=== PATIENT | female | born 1955 | race African-American/Black ===

== ENCOUNTER 2024-08-19 07:30 | Inpatient (IN) | payer OTHER ==
[2024-08-19] MEDS ORDERED: NOREPINEPHRINE 8 MG/250 ML-D5W 250 ML ONE (07:37)
[2024-08-19] MEDS ORDERED: Magnesium 2 GM/50 ML BAG (IN WATER) ONE (07:55)
[2024-08-19 08:14] LABS: Actual Bicarbonate (HCO3a) 21.5 mEq/L (22-28); Analyzer IN Cardio ER; Calcium, Ionized (arterial) 1.21 mmol/L (1.12-1.30); Carboxyhemoglobin (COHb) 0.8 gm% (0.0-3.0); Hematocrit-ABG 30 % (36.0-47.0); Hemoglobin (Hb) 10.1 g/dL (12.0-16.0); O2 Tension (PaO2), arterial 547.3 mmHg (> 70.0); Potassium - ABG Lab 4.45 mmol/L (3.70-5.30); pH, Arterial 7.393 (7.35-7.45)
[2024-08-19] MEDS ORDERED: Vancomycin (BATCH) 2 GM/500 ML BAG ONE (08:16)
[2024-08-19] MEDS ORDERED: Cefepime 2 GM VIAL ONE (08:17)
[2024-08-19] MEDS ORDERED: Sodium Chloride 0.9% 100 ML ONE (08:17)
[2024-08-19 08:20] LABS: Hemoglobin 9.5 g/dL (12.0-16.0); Mean Corpuscular HGB CONC 28.8 g/dL (32.0-36.0); Mean Corpuscular Volume 104.1 fL (78.0-98.0); Mean Platelet Volume 11.7 fL (7.4-10.4); Platelet Count 106 10x3/uL (130-400); RBC Distribution Width 13.2 % (11.5-14.5); Red Blood Cell (RBC) Count 3.17 mill/uL (4.20-5.40)
[2024-08-19] MEDS ORDERED: fentaNYL 50 mcg/mL 1 mL Vial ONE ×3 (08:24→08:41)
[2024-08-19 08:26] LABS: ALT (SGPT) 160 U/L (Less than 34); AST (SGOT) 232 U/L (11-34); Albumin 2.4 g/dL (3.1-4.5); Alkaline Phosphatase 118 U/L (40-110); Anion Gap 24 mmol/L (10-20); BUN (Urea Nitrogen) 19 mg/dL (9.8-20.1); Bilirubin, Total 0.4 mg/dL (0.3-1.2); CK (CPK) 79 U/L (29-168); Calc. Creatinine Clearance 0 mL/min (70-130); Calcium 10.1 mg/dL (7.8-10.44); Carbon Dioxide 21 mmol/L (23-31); Chloride 97 mmol/L (98-107); Estimated GFR 45; Glucose 288 mg/dL (80-115); Lipase 22 U/L (8-78); Magnesium 1.9 mg/dL (1.6-2.6); Potassium 5.8 mmol/L (3.5-5.1); Protein, Total 5.4 g/dL (5.8-8.1); Sodium 136 mmol/L (136-145)
[2024-08-19 08:28] LABS: Troponin I 0.031 ng/mL (< 0.028)
[2024-08-19 08:33] LABS: Puncture Site Left Radial artery
[2024-08-19 08:40] LABS: INR-International Normal Ratio 1.2; PTT 32.9 sec (22.9-36.1); Prothrombin Time 14.9 sec (12.0-14.7)
[2024-08-19] MEDS ORDERED: Midazolam HCl 2 mg/2 ml Vial ONE (08:43)
[2024-08-19] MEDS ORDERED: LORazepam 2 MG/ML SYR.(CARPUJECT) ONE (08:45)
[2024-08-19] MEDS ORDERED: KETAMINE 100 MG/ML (5ML VIAL) ONE ×2 (08:45→09:22)
[2024-08-19] MEDS ORDERED: Fentanyl CADD 100 ML IV SCH (08:45)
[2024-08-19] MEDS ORDERED: EPINEPHrine 1 MG/10 ML Abboject SYRINGE ONE (09:02)
[2024-08-19 09:25] LABS: Anisocytosis MARKED = >30 cells HPF (0-5); Band 2 % (5-11); Lymphocytes 32 % (21-51); Macrocytosis MODERATE=16-30 cells HPF (0-5); Metamyelocyte 1 % (0-0); Monocytes 2 % (0-10); Neutrophil 63 % (42-75); Ovalocytes SLIGHT = 2-5 cells HPF (0-1); Platelet Adequacy Comment Platelets Decreased
[2024-08-19] MEDS ORDERED: Iopamidol-370 76% 500 ML MDV (1 ML CHARGE) ONE (11:07)
[2024-08-19 11:11] LABS: Lactic Acid 11.62 mmol/L (0.50-2.20)
[2024-08-19 11:45] LABS: Bacteria/HPF 4+ HPF (None Seen); Bilirubin Negative (Negative); Blood, Urine Trace (Negative); CAUTI Indications for Culture Alt mental st,lethar; Clarity Turbid (Clear); Glucose, Urine (Dipstick) Normal (Negative); Ketone, Urine Negative (Negative); Leukocyte 500 Leu/uL (Negative); Nitrite Negative (Negative); Protein, Urine (Dipstick) 70 mg/dL (Neg-Trace); Specific Gravity, Urine 1.011 (1.002-1.036); Squamous Epithelial 0-3 HPF (0-3); Urobilinogen Normal mg/dL (Less than 2); WBC/HPF Greater than 50 HPF (0-3)
[2024-08-19] MEDS ORDERED: Ondansetron PF 4 MG/2 ML Vial IVP PRN (11:50)
[2024-08-19 11:53] LABS: Urine Culture Reflex Yes Yes
[2024-08-19] MEDS ORDERED: Dextrose 5% in Water 1,000 ML IV PRN (13:04)
[2024-08-19] MEDS ORDERED: Insulin Lispro 100 UNIT/ML 10 ML VIAL SC PRN (13:04)
[2024-08-19] MEDS ORDERED: Dextrose 50% Abboject 50 ML SYRINGE SLOW IVP PRN (13:04)
[2024-08-19] MEDS ORDERED: Glucagon 1 MG/ML KIT IM PRN (13:04)
[2024-08-19 13:11] VITALS: BMI 44.8
[2024-08-19] MEDS ORDERED: Electrolyte Replacement Protocol 1 EACH FS SCH (13:12)
[2024-08-19] MEDS: NOREPINEPHRINE 8 MG/250 ML-D5W 250 ML IVPB SCH (13:26)
[2024-08-19] MEDS ORDERED: DOPamine 400 MG/D5W 250 ML 250 ML IVPB SCH (14:30)
[2024-08-19] MEDS: Magnesium 2 GM/50 ML(in water) 2 GM in Premix 1 BAG IVPB SCH ×2 (14:31→17:02)
[2024-08-19] MEDS: Lactated Ringer's 1,000 ML IV SCH (14:42)
[2024-08-19 14:46] LABS: #Basophils Less than 0.03 10x3/uL (0.0-0.2); #Eosinophils Less than 0.03 10x3/uL (0.0-0.7); %Basophils 0.2 % (0.0-1.0); %Lymphocytes 7.6 % (21.0-51.0); %Monocytes 5.9 % (0.0-10.0); %Neutrophils 85.9 % (42.0-75.0); Hematocrit 33.2 % (36.0-47.0); Hemoglobin 10.5 g/dL (12.0-16.0); Mean Corpuscular HGB CONC 31.6 g/dL (32.0-36.0); Mean Corpuscular Hemoglobin 29.4 pg (27.0-31.0); Mean Platelet Volume 10.9 fL (7.4-10.4); Platelet Count 222 10x3/uL (130-400); RBC Distribution Width 12.6 % (11.5-14.5); Red Blood Cell (RBC) Count 3.57 mill/uL (4.20-5.40)
[2024-08-19 14:56] LABS: Lactic Acid 2.41 mmol/L (0.50-2.20)
[2024-08-19 15:03] LABS: ALT (SGPT) 265 U/L (Less than 34); AST (SGOT) 367 U/L (11-34); Alkaline Phosphatase 183 U/L (40-110); Anion Gap 18 mmol/L (10-20); BUN (Urea Nitrogen) 24 mg/dL (9.8-20.1); Bilirubin, Total 1.4 mg/dL (0.3-1.2); Calc. Creatinine Clearance 100 mL/min (70-130); Calcium 9.5 mg/dL (7.8-10.44); Carbon Dioxide 26 mmol/L (23-31); Chloride 97 mmol/L (98-107); Estimated GFR 58; Globulin 3.7 g/dL (2.4-3.5); Glucose 233 mg/dL (80-115); Potassium 3.6 mmol/L (3.5-5.1); Protein, Total 6.7 g/dL (5.8-8.1); Sodium 137 mmol/L (136-145)
[2024-08-19 15:11] LABS: Troponin I 0.033 ng/mL (< 0.028)
[2024-08-19] MEDS ORDERED: Vasopressin 20 UNITS in Sodium Chloride 0.9% 50 ML IV SCH (15:30)
[2024-08-19] MEDS: Lorazepam 2 MG/ML VIAL SLOW IVP SCH (15:53)
[2024-08-19] MEDS: Sodium Polystyrene Sulfonate 15 GM (60 mL) BOT PO SCH (16:31)
[2024-08-19] MEDS: Lorazepam 2 MG/ML VIAL ONE (16:31)
[2024-08-19] MEDS: NOREPINEPHRINE 8 MG/250 ML-D5W 250 ML ONE (16:32)
[2024-08-19] MEDS: levETIRAcetam 500 MG (5 mL) VIAL SLOW IVP SCH ×2 (18:04→20:11)
[2024-08-19] MEDS: Lacosamide 200 MG in Sodium Chloride 0.9% 50 ML IVPB SCH (18:04)
[2024-08-19] MEDS: Famotidine/PF 20 mg/2ml Vial SLOW IVP SCH (20:11)
[2024-08-19] MEDS: Cefepime 2 GM in Sodium Chloride 0.9% 100 ML IVPB SCH (22:21)
[2024-08-19] MEDS: Vancomycin HCl 750 MG in Sodium Chloride 0.9% 250 ML 250 ML IVPB SCH (22:22)
[2024-08-19] MEDS: Vasopressin In 0.9 % NaCl 40 UNIT in Premix 1 BAG IV SCH (22:25)
[2024-08-19] MEDS: Lacosamide 100 MG in Sodium Chloride 0.9% 50 ML IVPB SCH (22:40)
[2024-08-20 05:48] LABS: #Basophils 0.04 10x3/uL (0.0-0.2); #Eosinophils Less than 0.03 10x3/uL (0.0-0.7); %Basophils 0.4 % (0.0-1.0); %Eosinophils 0.1 % (0.0-10.0); %Monocytes 3.9 % (0.0-10.0); %Neutrophils 87.2 % (42.0-75.0); Hematocrit 27.2 % (36.0-47.0); Mean Corpuscular HGB CONC 33.1 g/dL (32.0-36.0); Mean Corpuscular Hemoglobin 29.7 pg (27.0-31.0); Mean Corpuscular Volume 89.8 fL (78.0-98.0); Mean Platelet Volume 11.3 fL (7.4-10.4); Platelet Count 179 10x3/uL (130-400); RBC Distribution Width 13.1 % (11.5-14.5); Red Blood Cell (RBC) Count 3.03 mill/uL (4.20-5.40)
[2024-08-20] MEDS ORDERED: Electrolyte Replacement Protocol FS PRN (06:15)
[2024-08-20 06:26] LABS: Vancomycin, Random 12.7 ug/mL (See Comment)
[2024-08-20 06:29] LABS: ALT (SGPT) 168 U/L (Less than 34); AST (SGOT) 131 U/L (11-34); Albumin 2.6 g/dL (3.1-4.5); Alkaline Phosphatase 141 U/L (40-110); Anion Gap 16 mmol/L (10-20); BUN (Urea Nitrogen) 26 mg/dL (9.8-20.1); Bilirubin, Total 0.7 mg/dL (0.3-1.2); Calc. Creatinine Clearance 0 mL/min (70-130); Carbon Dioxide 25 mmol/L (23-31); Chloride 99 mmol/L (98-107); Estimated GFR 49; Globulin 3.1 g/dL (2.4-3.5); Glucose 135 mg/dL (80-115); Potassium 3.9 mmol/L (3.5-5.1); Protein, Total 5.7 g/dL (5.8-8.1); Sodium 136 mmol/L (136-145)
[2024-08-20] MEDS: Cefepime 2 GM in Sodium Chloride 0.9% 100 ML IVPB SCH ×2 (09:00→21:13)
[2024-08-20] MEDS: Enoxaparin 40 MG (0.4 mL) SYRINGE SC SCH ×2 (09:30→12:25)
[2024-08-20] MEDS ORDERED: Fentanyl BOLUS 250 ML IVPB PRN (11:15)
[2024-08-20] MEDS: Fentanyl CADD 100 ML IV SCH (11:27)
[2024-08-20] MEDS: Vancomycin HCl 750 MG in Sodium Chloride 0.9% 250 ML 250 ML IVPB SCH (12:45)
[2024-08-21 05:06] LABS: #Basophils 0.03 10x3/uL (0.0-0.2); %Basophils 0.3 % (0.0-1.0); %Eosinophils 1.5 % (0.0-10.0); %Lymphocytes 7.2 % (21.0-51.0); %Monocytes 3.3 % (0.0-10.0); %Neutrophils 87.1 % (42.0-75.0); Hematocrit 26.4 % (36.0-47.0); Hemoglobin 8.8 g/dL (12.0-16.0); Mean Corpuscular HGB CONC 33.3 g/dL (32.0-36.0); Mean Corpuscular Volume 90.1 fL (78.0-98.0); Mean Platelet Volume 12.1 fL (7.4-10.4); Platelet Count 171 10x3/uL (130-400); RBC Distribution Width 13.7 % (11.5-14.5); Red Blood Cell (RBC) Count 2.93 mill/uL (4.20-5.40)
[2024-08-21 05:24] LABS: ALT (SGPT) 106 U/L (Less than 34); AST (SGOT) 80 U/L (11-34); Albumin 2.4 g/dL (3.1-4.5); Alkaline Phosphatase 127 U/L (40-110); Anion Gap 14 mmol/L (10-20); BUN (Urea Nitrogen) 27 mg/dL (9.8-20.1); Calc. Creatinine Clearance 0 mL/min (70-130); Calcium 8.5 mg/dL (7.8-10.44); Carbon Dioxide 28 mmol/L (23-31); Chloride 101 mmol/L (98-107); Estimated GFR 50; Globulin 3.2 g/dL (2.4-3.5); Glucose 100 mg/dL (80-115); Potassium 3.6 mmol/L (3.5-5.1); Protein, Total 5.6 g/dL (5.8-8.1); Sodium 139 mmol/L (136-145)
[2024-08-21] MEDS: FLU (Fluad Triv) TS24-25 (65UP)/MF59C/PF 45 MCG/0.5 ML Syringe IM ONE (07:56)
[2024-08-21] MEDS ORDERED: Vancomycin 1.5 GRAM/300 ML BAG 1.5 GM in Premix 1 BAG IVPB SCH (13:00)
[2024-08-21 15:19] VITALS: BMI 43.0
[2024-08-22 03:41] LABS: #Basophils Less than 0.03 10x3/uL (0.0-0.2); %Basophils 0.1 % (0.0-1.0); %Eosinophils 2.1 % (0.0-10.0); %Lymphocytes 10.9 % (21.0-51.0); %Monocytes 4.4 % (0.0-10.0); %Neutrophils 82.1 % (42.0-75.0); Hematocrit 25.3 % (36.0-47.0); Hemoglobin 7.9 g/dL (12.0-16.0); Mean Corpuscular HGB CONC 31.2 g/dL (32.0-36.0); Mean Corpuscular Hemoglobin 29.3 pg (27.0-31.0); Mean Corpuscular Volume 93.7 fL (78.0-98.0); Mean Platelet Volume 12.5 fL (7.4-10.4); Platelet Count 155 10x3/uL (130-400); RBC Distribution Width 13.8 % (11.5-14.5)
[2024-08-22 03:58] LABS: Anion Gap 12 mmol/L (10-20); BUN (Urea Nitrogen) 23 mg/dL (9.8-20.1); Calc. Creatinine Clearance 93 mL/min (70-130); Calcium 8.4 mg/dL (7.8-10.44); Carbon Dioxide 28 mmol/L (23-31); Chloride 102 mmol/L (98-107); Estimated GFR 55; Glucose 88 mg/dL (80-115); Potassium 3.4 mmol/L (3.5-5.1); Sodium 139 mmol/L (136-145)
[2024-08-22] MEDS: Potassium Chloride 40 MEQ in Premix 1 BAG IVPB SCH (05:53)
[2024-08-22] MEDS: CEFAZOLIN 1 GM in Sodium Chloride 0.9% 100 ML IVPB SCH (09:30)
[2024-08-22] MEDS: Lorazepam 2 MG/ML VIAL ONE (10:13)
[2024-08-22 17:51] LABS: Potassium 3.6 mmol/L (3.5-5.1)
[2024-08-23 04:45] LABS: #Basophils Less than 0.03 10x3/uL (0.0-0.2); %Basophils 0.2 % (0.0-1.0); %Eosinophils 3.7 % (0.0-10.0); %Lymphocytes 12.6 % (21.0-51.0); %Monocytes 7.8 % (0.0-10.0); %Neutrophils 75.2 % (42.0-75.0); Hematocrit 25.2 % (36.0-47.0); Hemoglobin 7.9 g/dL (12.0-16.0); Mean Corpuscular HGB CONC 31.3 g/dL (32.0-36.0); Mean Corpuscular Hemoglobin 28.9 pg (27.0-31.0); Mean Corpuscular Volume 92.3 fL (78.0-98.0); Mean Platelet Volume 12.4 fL (7.4-10.4); Platelet Count 147 10x3/uL (130-400); RBC Distribution Width 13.4 % (11.5-14.5); Red Blood Cell (RBC) Count 2.73 mill/uL (4.20-5.40)
[2024-08-23 05:08] LABS: Anion Gap 12 mmol/L (10-20); BUN (Urea Nitrogen) 20 mg/dL (9.8-20.1); Calc. Creatinine Clearance 95 mL/min (70-130); Calcium 8.4 mg/dL (7.8-10.44); Carbon Dioxide 26 mmol/L (23-31); Chloride 106 mmol/L (98-107); Estimated GFR 58; Glucose 74 mg/dL (80-115); Potassium 3.5 mmol/L (3.5-5.1); Sodium 140 mmol/L (136-145)
[2024-08-23] MEDS: Potassium Chloride 40 MEQ in Premix 1 BAG IVPB SCH (06:52)
[2024-08-23 12:04] VITALS: TEMP 97.8
[2024-08-23 15:30] VITALS: BP 139/86
== END 2024-08-23 15:41 | disposition hospice, inpatient (51) | DRG 207 ==
LOC: ERS 07:30 → CCU 11:39
PROVIDERS: ADMIT Student in an Organized Health Care Education/Training Program; ATTEND Student in an Organized Health Care Education/Training Program
PROC: 5A1955Z Respiratory Ventilation, Greater than 96 Consecutive Hours (ICD-10-PCS; principal; 2024-08-19)
PROC: 4A10X4Z Monitoring of Central Nervous Electrical Activity, External Approach (ICD-10-PCS; 2024-08-19)
PROC: 3E03329 Introduction of Other Anti-infective into Peripheral Vein, Percutaneous Approach (ICD-10-PCS; 2024-08-19)
DX: J96.01 Acute respiratory failure with hypoxia (principal); A41.9 Sepsis, unspecified organism; I46.9 Cardiac arrest, cause unspecified; E87.20 Acidosis, unspecified; G93.1 Anoxic brain damage, not elsewhere classified; N39.0 Urinary tract infection, site not specified; N18.30 Chronic kidney disease, stage 3 unspecified; T68.XXXA Hypothermia, initial encounter; I50.9 Heart failure, unspecified; R79.89 Other specified abnormal findings of blood chemistry; E87.5 Hyperkalemia; D53.9 Nutritional anemia, unspecified; E11.65 Type 2 diabetes mellitus with hyperglycemia; J45.909 Unspecified asthma, uncomplicated; G47.33 Obstructive sleep apnea (adult) (pediatric); I11.0 Hypertensive heart disease with heart failure; Z79.84 Long term (current) use of oral hypoglycemic drugs; Z79.82 Long term (current) use of aspirin; Z79.899 Other long term (current) drug therapy; Z88.0 Allergy status to penicillin; Z51.5 Encounter for palliative care
CPT/HCPCS: 36415; 36416; 36600; 70450; 71045; 71275; 72125; 74177; 80048; 80053; 80202; 81001; 82550; 82805; 83605; 83690; 83735; 83880; 84145; 84443; 84484; 85025; 85610; 85730; 87040; 87077; 87086; 87186; 93005; 93306; 94002; 94003; 95708; C9254; J0171; J0690; J0692; J1650; J1953; J2060; J2250; J3010; J3370; J3475; J3480; J3490; J7050; Q9967

== ENCOUNTER 2024-08-23 16:16 | Inpatient (IN) | payer OTHER ==
[2024-08-23] MEDS ORDERED: Morphine 2 MG/ML VIAL SLOW IVP PRN (16:27)
[2024-08-23] MEDS ORDERED: diphenhydrAMINE 25 MG CAP PO PRN (16:29)
[2024-08-23] MEDS ORDERED: Morphine 2 MG/ML VIAL SLOW IVP SCH (16:30)
[2024-08-23] MEDS ORDERED: Haloperidol Lactate 5 MG/ML VIAL SLOW IVP PRN ×2 (16:31→16:33)
[2024-08-23] MEDS ORDERED: Ondansetron PF 4 MG/2 ML Vial IVP PRN (16:32)
[2024-08-23] MEDS ORDERED: Scopolamine 1 mg/72 hour Patch TOP PRN (16:34)
[2024-08-23] MEDS ORDERED: Glycopyrrolate 0.4 MG/ 2 ML VIAL SLOW IVP PRN (16:34)
[2024-08-23] MEDS ORDERED: Atropine Sulfate 1% Ophth Soln 5 ml Bottle SL PRN (16:36)
[2024-08-23] MEDS ORDERED: Bisacodyl 10 MG SUPP PR PRN (16:37)
[2024-08-23] MEDS: Lorazepam 2 MG/ML VIAL SLOW IVP PRN (16:42)
[2024-08-23] MEDS: Morphine 4 MG/ML VIAL SLOW IVP PRN (16:42)
[2024-08-23] MEDS: Lorazepam 2 MG/ML VIAL SLOW IVP SCH (17:12)
== END 2024-08-23 17:30 | disposition expired | DRG 951 ==
LOC: CCU 16:16
PROVIDERS: ADMIT Student in an Organized Health Care Education/Training Program; ATTEND Student in an Organized Health Care Education/Training Program
DX: Z51.5 Encounter for palliative care (principal); A41.51 Sepsis due to Escherichia coli [E. coli]; J96.01 Acute respiratory failure with hypoxia; N39.0 Urinary tract infection, site not specified; Z66 Do not resuscitate; G93.1 Anoxic brain damage, not elsewhere classified; R57.9 Shock, unspecified; E87.20 Acidosis, unspecified; I46.9 Cardiac arrest, cause unspecified; R74.01 Elevation of levels of liver transaminase levels; E87.5 Hyperkalemia; D53.9 Nutritional anemia, unspecified
CPT/HCPCS: J2060; J2270